=== PATIENT | male | born 1950 | race Caucasian/White ===

== ENCOUNTER → 2017-03-27 | Outpatient (CLI) | payer MEDICARE, MEDICAID ==
[~2017-03-27] MED LIST: ASPIR-LOW81 MG; GABAPENTIN800 MG; VENTOLIN H0.09 MG/AC; XANAX2 MG; ZESTRIL 10MG TA10 MG
--- NOTE | 2017-03-27 11:03 | RADIOLOGY REPORT PS360 ---
CT ABD PELVIS W/O CONTRAST CLINICAL INDICATION: UTI, HEMATURIA ORDERING PHYSICIAN: Jesus Pacheco MD PATIENT AGE: 67 years COMPARISON: None TECHNIQUE: Axial images obtained with sagittal and coronal reformats. PROCEDURE: Oral Contrast: None IV Contrast: None . FINDINGS: Lung bases are clear. There are coronary artery calcifications. There are scattered small hypodense lesions of the liver the largest in the central aspect of the liver measuring 11 mm. This may be due to cyst. Follow-up suggested to confirm stability. No radio opaque gallstones. The spleen, pancreas, and adrenal glands have an unremarkable unenhanced CT appearance. There is a 14 mm isodensity involving the lateral aspect of the right kidney consistent with a renal cyst. There is a 4 mm nonobstructing stone in the lower pole the left kidney. No hydronephrosis or ureteral calculi evident. There are minimal stranding of the perinephric renal fat nonspecific. The wall of the urinary bladder is thickened anteriorly with some minimal stranding of the fat around the urinary bladder. This could be due to neoplasm or chronic urinary tract infection. The bladder is nondistended. Mild fusiform infrarenal abdominal aortic aneurysm at 3 cm. No evidence of intracranial hemorrhage. There is a mild amount retained colonic feces. The appendix has an unremarkable appearance. There is mild thickening versus nondistention of the rectum. No evidence of diverticulitis. No intestinal obstruction or free air. There is a small left inguinal hernia which contains fat. No acute bony findings. IMPRESSION: 1. Left nephrolithiasis. No obstructing calculi evident. 2. Asymmetric thickening of the anterior aspect of the urinary bladder with mild stranding of the fat around the bladder. This could be due to neoplasm or chronic cystitis. 3. 3 cm fusiform infrarenal abdominal aortic aneurysm. 4. Small left inguinal hernia containing fat. 5. Multiple hypodense lesions of the liver which may be due to cyst and may be confirmed with follow-up
[2017-03-27 19:45] LABS: AMPHETAMINES/METAMPHETAMINES NEGATIVE ng/mL (<1000)
== END ==
LOC: LAB 07:57 → RAD 07:57
PROVIDERS: Emergency Medicine
DX: N39.0 Urinary tract infection, site not specified (principal); R31.9 Hematuria, unspecified; Z79.899 Other long term (current) drug therapy

== ENCOUNTER → 2017-04-11 | Outpatient (CLI) | payer MEDICARE, MEDICAID ==
--- NOTE | 2017-04-11 11:03 | RADIOLOGY REPORT PS360 ---
CT ABD PELVIS W/ CONTRAST HISTORY: BLADDER CANCER Patient Age: 67 years: Male Ordering Physician: Jesus Pacheco MD TECHNIQUE: Helical CT scanning performed through the abdomen and pelvis probably 75 cc [id number]. Imaging performed at 60 seconds post contrast and then 2 minutes delay. COMPARISON :CT abdomen pelvis without contrast from 03/27/2017. FINDINGS The most significant findings are at the urinary bladder. There is diffuse stocking cap -like wall thickening throughout the anterior wall extending most evident extending towards the inferior floor of the bladder back to the level of of the prostate. There is also wall thickening extending into the anterior right and left lateral wall.. Curiously the posterior wall does not appear to be thickened.. These areas of up to 12 mm wall thickening demonstrate ill-defined peripheral margin and stranding peripherally about the areas of wall thickening.. Findings may reflect severe cystitis although concern regarding tumor given the slight nodular character in some areas .for example as demonstrated on axial image 110 & 111 anteriorly on the right. Today's images show actually fairly smooth enhancement of the internal mucosa of the bladder the with no prominent enhancing mass per se ----- Lung bases are clear. Heart normal size. Coronary artery calcification noted within the LAD.. Abdomen/Pelvis. Liver: No significant appearing findings. What appear to be a few small scattered cysts noted throughout liver., no enhancement. No fluid density:. 12 mm likely cyst central liver. Small 8 mm cyst at periphery of right lobe liver (axial image 30 and (, with a tiny 5 mm cyst just. Also Tiny 5 mm cyst inferior at right lobe Spleen unremarkable. Adrenals unremarkable. Pancreas unremarkable. Gallbladder. The generous caliber but no calcified stones. No wall thickening or inflammation. No biliary ductal dilatation. Aorta. 3.2 cm aneurysm of the lower abdominal aorta again noted. The mild dilatation of the left common iliac artery associated. Kidneys. No urinary obstruction Right kidney: Small cysts:. 13 mm x 16 mm cyst seen from the mid right lobe. Tiny 5 mm cyst off the inferior pole barely evident. Small 7 mm cyst cortex midportion left kidney. On close inspection on the 10 minute delayed image set was question some very subtle irregularity posteriorly aspect of the superior right renal pelvis as seen on 20 minute delayed axial image 34... Particularly if transitional cell diagnosis which can be multifocal within the collecting system Left kidney. Small 3X 4 mm nonobstructive calculus midportion left kidney again noted No retroperitoneal adenopathy no mesenteric nor pelvic adenopathy. Moderate to generous stool throughout the colon. No small bowel dilatation or obstruction. The lung bases clear. Small fat-containing left inguinal hernia again noted. Osseous structures. No focal lesions. Degenerative changes spine which yield spinal stenosis at most evident at L4/5 followed by L3/4. IMPRESSION 1. Again note prominent diffuse wall thickening throughout anterior aspect of urinary bladder. ... The wall thickening appears almost nodular in some areas it described above, with stranding of fat surrounding anterior bladder wall.. Severe cystitis versus diffuse tumor thickening the anterior bladder wall-cannot discern on CT but but nodularity raises concern suspicion regarding neoplasm 2. Right kidney. Only Question some very subtle irregularity along the superior posterior wall of right renal pelvis 10 minute delayed images (axial image 34). This appearance Could merely be due to volume averaging of undulating renal pelvis but seems to persist on workstation reconstructions & should be kept in mind. 3. Nonobstructive 4 x 3 mm calculus mid left kidney 4. Small cysts at kidneys bilaterally; as well as scattered cyst throughout liver. 5. Developing aneurysmal dilatation infrarenal aorta measuring up to 3.2 cm..
== END ==
LOC: RAD 09:41
DX: C67.9 Malignant neoplasm of bladder, unspecified (principal)
CPT/HCPCS: Q9967

== ENCOUNTER → 2017-06-22 | Outpatient (CLI) | payer MEDICARE, MEDICAID ==
[2017-06-22 18:45] LABS: AMPHETAMINES/METAMPHETAMINES NEGATIVE ng/mL (<1000)
== END ==
LOC: LAB 15:34
PROVIDERS: Emergency Medicine
DX: Z79.899 Other long term (current) drug therapy (principal)